=== PATIENT | female | born 1975 | race American Indian/Alaskan Native ===

== ENCOUNTER 2017-11-25 06:18 | Day surgery (SDC) | payer OTHER ==
[2017-11-19 11:53] VITALS: BMI 32.8
[2017-11-25 07:11] LABS: HEMOGLOBIN 11.5 g/dL (12.0-16.0); MEAN CORPUSCULAR HGB CONC 33.7 g/dL (33.0-37.0); RBC 3.82 Mil/uL (3.80-5.20); RED CELL DISTRIBUTION WIDTH 14.5 % (11.5-14.5); WHITE BLOOD COUNT 5.1 K/uL (4.8-10.8)
[2017-11-25] MEDS ORDERED: Lactated Ringer's 1,000 ML IV ONE ×2 (07:14→14:22)
--- NOTE | 2017-11-25 07:19 | CP.SDSHP ---
Addendum entered and electronically signed by Ewa Kulkarni PA-C 11/25/17 14:35: [place] [employer] patient report reviewed, no CDS. Patient counseled on the risks of addiction, physical or psychological dependence, and overdose associated with opioid drugs and the danger of taking opioid drugs with alcohol and other central nervous system depressants, and cautioned patient on storage and disposal. Original Note: Same Day Surgery H & P - History Proposed Procedure: Left knee arthroscopy possible ACL reconstruction Pre-Op Diagnosis: Left knee ACL partial tear - Previous Medical/Surgical History Cardiac: Other (LBBB, LVH) Previous Surgical History: breast biopsy - Allergies Allergies: Allergies ciprofloxacin [From Cipro] Allergy (Verified 11/19/17 11:54) SWELLING - Physical Exam Vital Signs: Vital Signs 11/25/17 11/25/17 06:52 06:55 Temperature 98.9 F Pulse Rate 96 H 96 H Respiratory 20 Rate Blood Pressure 119/70 O2 Sat by Pulse 98 Oximetry Mental Status: Alert & Oriented x3 Heart: Other (cardiology clearance on chart) - {Optional Preform as Required} Ortho: Other (+DP/PT pulses, calves soft NT, +ROM ankle/toes) Other Pertinent Findings: MRI on chart, states posterior ACL bundle tear, no meniscal tear - Impression Impression: 42F complains of left knee pain x 4 years after injury while exercising, with continued pain found to have ACL tear as per MRI for arthroscopy possible ACL reconstruction Pt. Evaluated Today:Candidate for Anesthesia & Procedure: Yes - Date & Time Date: 11/25/17 Time: 07:25 Short Stay Discharge - Short Stay Discharge Admitting Diagnosis/Reason for Visit: S83.512A,M25.562,M25.662 Disposition: HOME/ ROUTINE Referrals: Jaswinder Sheriff III, MD [Primary Care Provider] - Past Patient History - Past Medical History & Family History Past Medical History?: Yes Past Family History: Reviewed and not pertinent - Past Social History Smoking Status: Never Smoked - CARDIAC Hx Cardiac Disorders: Yes Hx Hypotension: Yes - PULMONARY Hx Respiratory Disorders: Yes Hx Asthma: Yes - NEUROLOGICAL Hx Neurological Disorder: No - HEENT Hx HEENT Problems: No - RENAL Hx Chronic Kidney Disease: No - ENDOCRINE/METABOLIC Hx Endocrine Disorders: No - HEMATOLOGICAL/ONCOLOGICAL Hx Blood Disorders: Yes Hx Anemia: Yes - INTEGUMENTARY Hx Dermatological Problems: No - MUSCULOSKELETAL/RHEUMATOLOGICAL Hx Musculoskeletal Disorders: No - GASTROINTESTINAL Hx Gastrointestinal Disorders: No - GENITOURINARY/GYNECOLOGICAL Hx Genitourinary Disorders: No - PSYCHIATRIC Hx Psychophysiologic Disorder: No - SURGICAL HISTORY Hx Surgeries: Yes Hx Breast Biopsy: Yes (right) - ANESTHESIA Hx Anesthesia: Yes Hx Anesthesia Reactions: No Has any member of the family had a problem w/ anesthesia?: No
[2017-11-25] MEDS ORDERED: EPINEPHrine 1 mg/ml (1:1000) Inj ONE ×2 (11:00→11:50)
[2017-11-25] MEDS ORDERED: Bacitracin Ointment 30 GM TUBE ONE (11:00)
[2017-11-25] MEDS ORDERED: Succinylcholine 200 mg/10 ml Inj IV ONE (11:46)
[2017-11-25] MEDS ORDERED: Rocuronium 10 mg/ml (5 ml) ONE (11:46)
[2017-11-25] MEDS ORDERED: Propofol 10 mg/ml Inj (20 ML) ONE (11:46)
[2017-11-25] MEDS ORDERED: Dexamethasone 4 mg/1 ml ONE (11:49)
[2017-11-25] MEDS ORDERED: Bupivacaine HCl 0.5% PF (30 ml) Inj ONE (11:50)
[2017-11-25] MEDS ORDERED: Albuterol HFA 90 mcg/actuation (8 g) ONE (11:58)
[2017-11-25] MEDS ORDERED: STERILE IRRIGATING SOLUTION 15 ML IR ONE (12:22)
[2017-11-25] MEDS ORDERED: Midazolam 2 MG/2 ML VIAL ONE (12:26)
[2017-11-25] MEDS ORDERED: EPINEPHrine 1 mg/ml (1:1000) Inj IV ONE (13:20)
[2017-11-25] MEDS ORDERED: Lidocaine 2% PF (10 ml) Amp INJ ONE (13:20)
[2017-11-25] MEDS ORDERED: Neostigmine 1:1000 (1 mg/ml) Inj ONE (14:02)
[2017-11-25] MEDS ORDERED: Desflurane Inhalation Anesthetic Liq (240 ml) ONE (14:02)
--- NOTE | 2017-11-25 14:24 | PCM.SURG1 ---
Surgeon's Initial Post Op Note - Surgeon's Notes Surgeon: Sharita Padder Cushion: LILIAN Ramirez Type of Anesthesia: General Endo Anesthesia Administered By: Dr Nestor Méndez Pre-Operative Diagnosis: ACL rupture L knee Operative Findings: ACL rupture L knee (partial posterolateral band). tear medial meiniscus/tear lateral meniscus. tericompartmental synovitis Post-Operative Diagnosis: as above Operation Performed: arthroscopic primary ACL repair/reconstruction with fiberloop technology(Arthrex)\. arthroscopic tricompartmental synovectomy. arthroscopic osteoplasty distal femur (Notchplasty). arthroscopic partial medial /lateral meniscectomy Specimen/Specimens Removed: synvovium/bone/cartilage Estimated Blood Loss: EBL {In ML}: 5 Blood Products Given: N/A Drains Used: No Drains Post-Op Condition: Good Date of Surgery/Procedure: 11/25/17 Time of Surgery/Procedure: 13:20 (time in room 1225/aneasthesia indcution time 12:25)
[2017-11-25] MEDS ORDERED: Lactated Ringer's 1,000 ML IV SCH (14:30)
--- NOTE | 2017-11-25 14:31 | PCM.ANESB3 ---
Femoral Nerve Block - Femoral Nerve Block Date of Procedure: 11/25/17 Anesthesiologist: Chiki Pre-Procedure Diagnosis: Left ACL teat Post-Procedure Diagnosis: Same Procedure Performed: Femoral Nerve Block Left - Procedure Femoral Nerve Block: The procedure was explained to the patient that it is for the post-operative pain management. Consent was obtained after a thorough discussion with the patient regarding the benefits and possible complications of local anesthetic block of the femoral nerve at the inguinal crease area. The patient was brought to the operating room and standard monitors were applied. Time-out was held with the circulating nurse to confirm the correct surgery and the appropriate block. Under general anesthesia, patient was placed in supine position with fully extended lower extremities and the __left groin exposed. The femoral artery was then carefully palpated. The ultrasound transducer was then applied to this area in the transverse plane and the femoral nerve was visualized lateral to the femoral artery and underneath the fascia iliaca. After thorough identification, the inguinal crease area was prepped with Chloraprep. At this point, a #22 gauge Stimuplex 2-inch needle was inserted immediately lateral to the femoral artery pulse at the inguinal crease and advanced perpendicularly. The needle was inserted to the ultrasound transducer in-plane towards the femoral nerve in a [id number] direction. Needle advancement was performed carefully under direct ultrasound visualization. Nerve stimulator was used and twitch of the quadriceps muscle was obtained at current of __0.4___MA. After negative aspiration, __2___cc of _0.375%____% ___bupivacaine with 1:200,000 epinephrine was injected and this was followed with ___18___ cc of ____0.375%___ % __bupivacaine with 1:200,000 epinephrine . Under ultrasound guidance the local anesthetics were observed spreading below fascia iliaca and around the femoral nerve. The needle was removed intact and sterile dressing was applied. The patient tolerated the femoral nerve block well with stable vital signs and was prepared for subsequent surgery.
--- NOTE | 2017-11-25 14:33 | PCM.ANESB2 ---
Popliteal Nerve Block - Popliteal Nerve Block Date of Procedure: 11/25/17 Anesthesiologist: Chiki Pre-Procedure Diagnosis: Left ACL tear Post-Procedure Diagnosis: Same Procedure Performed: Popliteal Nerve Block Left - Procedure Popliteal Nerve Block: This procedure was explained to the patient that it is for post-operative pain management. Consent was obtained after a thorough discussion with the patient regarding the benefits and possible complications of local anesthetic block of the sciatic nerve at the popliteal level. The patient was brought to the operating room and standard monitors are applied. Time-out was held with the circulating nurse to confirm the correct surgery and the appropriate block. Under general anesthesia, patient's operative leg was gently raised and supported and the groove in between the biceps femoris and vastus lateralis muscles was carefully palpated. The skin approximately 8cm above the popliteal crease was then marked. The ultrasound transducer was then applied to the posterior thigh approximately 8cm above the popliteal crease in the transverse plane and the sciatic nerve before its division was visualized lateral to the popliteal artery and in between the bicep femoris and semimembranosus/semitendinosus muscles. After identification, the lateral portion of the thigh was prepped with Chloraprep. At this point, a # 21 gauge Stimuplex insulated 4 inch needle was inserted into pre-marked area and advanced in a perpendicular direction. The needle was inserted above the ultrasound transducer in-plane towards the sciatic nerve in a crbxqzx-rp-efuypk direction. Needle advancement was performed carefully under direct ultrasound visualization. Nerve stimulator was used and dorsiflexion of the __left___ foot was elicited at a current of __0.4___ MA. After repeated negative aspiration, __2___cc of _0.375____ % _bupivacaine with 1:200,000 epine phrine was injected and this was flowed with __18____ cc of __0.375%____% ___bupivacaine with 1:200,000 epinephrine . Under ultrasound guidance the local anesthetics were observed surrounding sciatic nerve . The needle was removed intact. The patient tolerated the popliteal nerve block well with stable vital signs and was subsequently prepared for the surgery.
[2017-11-25] MEDS ORDERED: Oxycodone/Acetaminophen 5/325 mg Tab PO PRN (14:34)
[2017-11-25 15:43] VITALS: RESP 18
[2017-11-25 16:25] VITALS: O2SAT 100
[2017-11-25] MEDS ORDERED: Oxycodone/Acetaminophen 5/325 mg Tab PO ONE (17:00)
[2017-11-25 17:06] VITALS: BP 112/67; PULSE 82; TEMP 98
--- NOTE | 2017-11-25 22:43 | OP ---
PROCEDURE DATE: 11/25/2017 PREOPERATIVE DIAGNOSIS: Anterior cruciate ligament rupture, left knee. POSTOPERATIVE DIAGNOSES: 1. Partial rupture, anterior cruciate ligament, posterolateral band of the anterior cruciate ligament. 2. Tear medial meniscus, inner free edge; tear lateral meniscus, inner free edge. 3. Tricompartmental synovitis. OPERATIVE FINDINGS: 1. Partial tear and rupture of the anterior cruciate ligament, specifically the posterolateral band. 2. Tear, medial meniscus. 3. Tear, inner free edge lateral meniscus. 4. Tricompartmental synovitis. OPERATIONS PERFORMED: 1. Arthroscopic primary anterior cruciate ligament repair reconstruction with FiberLoop technology. 2. Arthroscopic tricompartmental synovectomy. 3. Arthroscopic osteoplasty (notchplasty) distal femur. 4. Arthroscopic partial medial and lateral meniscectomy. 5. Intraarticular injection. SURGEON: Jaswinder Sheriff MD. CENTRAL SUPPLY TECHNICIAN SUPERVISOR: Audrey Roy, certified registered nursing addictions counselor assistant. ANESTHESIA: General endotracheal anesthesia. ANESTHESIOLOGIST: Nestor Monet MD. COMPLICATIONS: None. DRAINS: None. POSTOPERATIVE CONDITION: Stable. TIME IN THE ROOM: 12:25. ANESTHESIA INDUCTION TIME: 12:25. INCISION TIME: 13:20. 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 The patient, for the past several months, has been having increasing pain, intermittent swelling and instability of the left knee. The patient has pain which awakens her from some sleep at night, has the gait disturbance and is very concerned about the knee because of her occupation as a traffic police officer. The patient failed conservative management consisting of nonsteroidal antiinflammatory medication, activity modification, and aggressive physical therapy. After having obtained informed consent, after thoroughly discussing the pros, cons, risks and benefits of surgical approach, the possibility of benign neglect, conservative management to continue, the patient can no longer withstand the discomfort and wished for the surgery to be accomplished. The concept of full ACL reconstruction with autograft was discussed. The concept that if indeed as MRI examination evidenced, there is only a partial rupture, the concept of meniscal repair with FiberLoop augmentation was discussed. The possibility of mechanical failure, infection, stiffness, thromboembolic disease, possibility of secondary or tertiary surgery was discussed. The patient can no longer withstand the discomfort and wished for the surgery to be accomplished. OPERATIVE PROCEDURE After having obtained informed consent in the above fashion, after having identified side, site and procedure and a critical pause/time-out, left knee being the correct knee, after the satisfactory induction of general endotracheal anesthesia by Dr. Monet, the patient identified as Rocky Wood in the supine position with all bony prominences well padded, the left lower extremity was prepped and free draped in the usual fashion for lower extremity surgery. The lateral post was employed on the operating table. After having identified side, site and procedure and critical pause/time-out, after the satisfactory induction of the anesthetic, the left lower extremity is exsanguinated using a 6-inch Esmarch bandage, tourniquet which had been applied was inflated to 350 mmHg. The joint is insufflated from an anterolateral portal using number #18-gauge spinal needle, followed by #11 blade, followed by spreading, followed by introduction of the blunt trocar. The joint was insufflated with 10 mL of 1% lidocaine without epinephrine. The arthroscope was introduced. There was found to be a tremendous amount of synovitis. With the surgeon exerting a gentle valgus stress using a #18-gauge spinal needle, an anteromedial portal was accomplished, using #18-gauge spinal needle followed by #11 blade, followed by spreading. With the arthroscope anterolaterally, the blunt trocar was introduced anteromedially, a third anterocentral portal for the notchplasty was accomplished; transpatellar stick was accomplished using #18-gauge spinal needle, followed by #11 blade, followed by spreading. With the arthroscope anterolaterally with the surgeon exerting a gentle valgus stress, a careful partial tricompartmental synovectomy was accomplished both to improve visualization and to ablate irritative tissue. With the arthroscope anterolaterally, a careful partial tricompartmental synovectomy was completed. Please refer to the video photographs. Hemostasis was controlled with the arthroscopic wand. Evaluation of the menisci reveals that there is a tear of the inner free edge of both medial and lateral meniscus. The anterior cruciate ligament is found to be only partially ruptured with the posterolateral band involved and with low takeoff from the intercondylar notch. With the arthroscope anterolaterally and with the surgeon exerting a gentle valgus stress, the medial meniscus is exposed to advantage and there was a tear of the inner free edge of the medial meniscus. Using a combination of straight biting basket forceps and the 3.4 mm Dyonics suction punch, a partial medial meniscectomy was accomplished. The inner free edge of the medial meniscus was smoothed using the arthroscopic wand. With the arthroscope anterolaterally with the knee in [id number] position, the inner free edge of the lateral meniscus was exposed to advantage. With the arthroscope anterolaterally with the knee in [id number] position, the inner free edge of the meniscus is evaluated; using a combination of straight biting basket forceps and side biting basket forceps, a partial lateral meniscectomy was accomplished. A partial medial meniscectomy and partial lateral meniscectomy having been accomplished, careful partial tricompartmental synovectomy was completed. Bleeding points were controlled with the arthroscopic wand. This having been accomplished, there was found to be evidence of instability of the anterior cruciate ligament. The decision to preserve the anterior cruciate ligament and perform a reconstructive repair was decided upon. With the arthroscope now anterolaterally, and with the surgeon exerting a gentle valgus stress, the arthroscopic bur was placed anterocentrally and a partial osteoplasty of the lateral condyle of the femur was accomplished. Osteoplasty and notchplasty of the medial wall of the lateral femoral condyle was accomplished, the so-called Resident's ridge was identified and ablated for the entry point for the SwiveLock anchor. This having been accomplished with the arthroscope anterolaterally, the Passport was placed anteromedially and using the scorpion, the FiberTape was placed from medial to lateral to repair the anterior cruciate ligament. This was brought back lateral to medial and brought out of the anteromedial portal. This having been accomplished, the scorpion is reloaded and in an anterior posterior plane, the suture was then brought back further proximally in the anterior posterior plane and at the end of the posterior anterior plane. This was an excellent gathering mechanism for the anterior cruciate ligament. This having been accomplished with the knee flexed to approximately 115 degrees, a drill bit was placed in the area of the footprint of the anterior cruciate ligament, approximately 6-7 mm anterior to the posterior aspect of the lateral femoral condyle. Drilling was accomplished to 20 mm. At this point in time, the SwiveLock anchor was loaded and it was placed into the drill hole with the knee in approximately 115 degrees. The PushLock anchor was carefully impacted and the SwiveLock anchor is seated, please refer to the video photographs. The fit was found to be excellent. The stability was found to be excellent. The wound was thoroughly irrigated. Careful partial tricompartmental synovectomy was completed. The FiberTape is trimmed with the cutter. Using the arthroscopic wand in a very low thermal setting, the anterior cruciate ligament is again coagulated, great care was taken to perform a careful partial tricompartmental synovectomy. Bleeding points were controlled with the wand. Medial and lateral meniscectomy having been completed, arthroscopic portals were closed with interrupted Vicryl and nylon. Intraarticular injection is offered. Jd Calvillo compression dressing and knee immobilizers was applied. Jaswinder Sheriff MD
== END 2017-11-25 17:45 | disposition home or self-care (01) ==
LOC: H.OPSURG 06:18
PROVIDERS: ATTEND Orthopaedic Surgery
DX: S83.512A Sprain of anterior cruciate ligament of left knee, initial encounter (principal); X58.XXXA Exposure to other specified factors, initial encounter; M65.862 Other synovitis and tenosynovitis, left lower leg; S83.242A Other tear of medial meniscus, current injury, left knee, initial encounter; D64.9 Anemia, unspecified; J45.909 Unspecified asthma, uncomplicated; I44.7 Left bundle-branch block, unspecified
CPT/HCPCS: 29876; 29880; 29888; 36415; 85027; 86850; 86900; 88305; 97161; G8978; G8979; G8980; J0171; J0330; J0690; J1100; J2001; J2250; J2405; J2704; J2710; J2765; J3010; J7030; J7120